=== PATIENT | female | born 1990 | race Caucasian/White ===

== ENCOUNTER 2020-05-10 01:53 | Emergency (ER) | payer OTHER ==
[~2020-05-10] VITALS: Ht 167.6 cm; Wt 101.1 kg
--- NOTE | 2020-05-10 01:57 | PHYS DOC ---
Past History Past Medical History: Arrhythmia Past Medical History Hx. PSVT child Past Surgical History Cardiac ablation-super ventricular pathway General Adult HPI: HPI: "..I got some chest discomfort..it all lorraine started at 11:30 pm....but I was argument with my Teenage adopted daughter...about typical teenage stuff.. in appropriate posting...ect.. but I felt like there was some discomfort in my chest.. my Rt. arm..maybe numbness like.. but I got more worried about it because of my cardiac problems as a child.. I had to get cardiac ablation... Of a conduction pathway because I was having severe episodes of tachycardia, chest pain, dyspnea, nausea and vomiting... This all happened when I was in 4th-6th grade in [facility].... And I am supposed to follow-up every year with a press service reader and get an EKG but I have not done any of that since I become adult... Patient is a 29 year old female dependent who presents with above hx and complaints right arm numbness and chest discomfort at approximately 2330 hr s.. Recently moved to the area from [facility], her is a Army recruiter account manager for at [employer].. Patient reportedly had severe episodes of paroxysmal supraventricular tachycardia as a child. Which eventually resulted in a ablation at the [facility] in [facility].. Patient states since that time she has not had any problems but was told to periodically follow-up with press service reader and a yearly EKG. Patient has not followed with a press service reader and currently not following with her primary care since adulthood. Patient denies any trauma. No specific ill contacts. No recent travel outside the [facility] since moving to [facility]. Review of Systems: Review of Systems: Constitutional: Denies fever or chills Eyes: Denies change in visual acuity HENT: Denies nasal congestion or sore throat Respiratory: Denies cough or shortness of breath Cardiovascular: Complaints of chest discomfort. GI: Denies abdominal pain, nausea, vomiting, bloody stools or diarrhea : Denies dysuria Musculoskeletal: Denies back pain or joint pain Integument: Denies rash Neurologic: Denies headache, focal weakness or sensory changes Endocrine: Denies polyuria or polydipsia Lymphatic: Denies swollen glands Psychiatric: Denies depression or anxiety Family History: Family History: Noncontributory to presentation Current Medications: Current Meds: See nursing for home meds Allergies: Allergies: No known drug allergies Physical Exam: PE: Constitutional: Well developed, well nourished, no acute distress, non-toxic appearance. [] HENT: Normocephalic, atraumatic, bilateral external ears normal, oropharynx moist, no oral exudates, nose normal. [] Eyes: PERRLA, EOMI, conjunctiva normal, no discharge. [] Neck: Normal range of motion, no tenderness, supple, no stridor. No bruits Cardiovascular:Heart rate regular rhythm, no murmur [] Lungs & Thorax: Bilateral breath sounds equal at apex auscultation [] Abdomen: Bowel sounds normal, soft, no tenderness, no masses, no pulsatile masses. [] Skin: Warm, dry, no erythema, no rash. [] Back: No tenderness, no CVA tenderness. [] Extremities: No tenderness, no cyanosis, no clubbing, ROM intact, no edema. Right arm discomfort described as numbness, seems to follow radial nerve on right. No cording in extremities appreciated Neurologic: Alert and oriented X 3, normal motor function, normal sensory function, no focal deficits noted. [] DTRs +2 patella and brachial. Journal Clerk equal. Right-hand dominant. Distal vibratory 128 intact. Air conduction more than bone conduction with no lateralization. Psychologic: Affect anxious, judgement normal, mood normal. [] EKG: EKG: My interpretation of EKG shows a sinus rhythm at 67 bpm. No acute morphology. There is some slight slurring of the ST in leads II and III [] Radiology/Procedures: Radiology/Procedures: [][address] [place] [id number] IMAGING REPORT Signed PATIENT: CANDIDO SHEIKH ACCOUNT: [id number] : 1990 LOCATION: ER AGE: 29 SEX: F EXAM STATUS: REG ER ORD. PHYSICIAN: AUBREE LE MD REASON: cp, hx psvt, abalation PROCEDURE: CHEST PA & LATERAL Study: CR CHEST PA LATERAL Indication: Chest pain. Comparison: None. Findings: Within normal limits cardiomediastinal silhouette and osmel. No pneumothorax, lobar consolidation or pleural effusion. Impression: No acute radiographic abnormality of the chest. Electronically signed by: PK SINGER MD (05/10/2020 3:08 AM) [id number] DICTATED AND SIGNED BY: PK SINGER MD DATE: 05/10/20 0308 CC: AUBREE LE MD; PCP,NO ~ Heart Score: HEART Score for Chest Pain: HEART Score for Chest Pain Response (Comments) Value History Slighlty/Non-Suspicious 0 ECG Normal 0 Age < 45 0 Risk Factors 1 or 2 Risk Factors 1 Troponin < Normal Limit 0 Total 1 Risk Factors: Risk Factors: DM, Current or recent (<one month) smoker, HTN, HLP, family history of CAD, obesity. Risk Scores: Score 0 - 3: 2.5% MACE over next 6 weeks - Discharge Home Score 4 - 6: 20.3% MACE over next 6 weeks - Admit for Clinical Observation Score 7 - 10: 72.7% MACE over next 6 weeks - Early Invasive Strategies Course & Med Decision Making: Course & Med Decision Making Pertinent Labs and Imaging studies reviewed. (See chart for details) Patient follow-up primary care. Recommend patient have cardiology follow-up. Patient return if any concerns. Avoid caffeine products. Impression: 1. Chest discomfort-suspect noncardiac 2. History of paroxysmal supraventricular tachycardia 3. History of supra ventricular pathway ablation age 9 [] Dragon Disclaimer: Dragon Disclaimer: This electronic medical record was generated, in whole or in part, using a voice recognition dictation system. Departure Departure: Referrals: PCP,NO (PCP) Dragon Disclaimer This chart was dictated in whole or in part using Voice Recognition software in a busy, high-work load, and often noisy Emergency Department environment. It may contain unintended and wholly unrecognized errors or omissions. AUBREE LE MD May 10, 2020 01:57
[2020-05-10 02:26] VITALS: BP 122/67
[2020-05-10] MEDS ORDERED: IV RINGERS SOLUTION,LACTATED 1,000 ML IV SCH (03:00)
[2020-05-10] MEDS ORDERED: ASPIRIN CHEWABLE 81 MG TABLET. PO ONE (03:00)
--- NOTE | 2020-05-10 03:11 | RAD ---
Study: CR CHEST PA LATERAL Indication: Chest pain. Comparison: None. Findings: Within normal limits cardiomediastinal silhouette and osmel. No pneumothorax, lobar consolidation or pleural effusion. Impression: No acute radiographic abnormality of the chest. Electronically signed by: PK SINGER MD (05/10/2020 3:08 AM) [id number]
[2020-05-10 03:22] LABS: BARBITURATES NEG (NEG); BENZODIAZEPINES NEG (NEG); CANNABINOIDS NEG (NEG); COCAINE NEG (NEG); METHADONE NEG (NEG); OPIATES NEG (NEG); PHENCYCLIDINE NEG (NEG)
[2020-05-10 03:25] LABS: AMPHETAMINE/METHAMPHETAMINE NEG (NEG)
[2020-05-10 03:27] LABS: CALCIUM 8.9 mg/dL (8.5-10.1); CREATININE 0.9 mg/dL (0.6-1.0); GFR 73.5; POTASSIUM 3.8 mmol/L (3.5-5.1)
[2020-05-10 03:28] LABS: AMORPHOUS SEDIMENT,UR PRESENT /HPF; BACTERIA,URINE 0 /HPF (0-FEW); BILIRUBIN,URINE NEG (NEG); CLARITY,URINE HAZY; COLOR,URINE YELLOW; GLUCOSE,URINE NEG (NEG); NITRITE,URINE NEG (NEG); RBC,URINE 0 /HPF (0-2); SQUAMOUS EPITHELIAL CELL,UR MOD /LPF; WBC,URINE OCC /HPF (0-4)
[2020-05-10 03:29] LABS: HEMOGLOBIN 12.3 g/dL (12.0-15.5); MEAN CORPUSCULAR HEMOGLOBIN 29 pg (25-35); MEAN CORPUSCULAR HGB CONC 32 g/dL (31-37); MEAN CORPUSCULAR VOLUME 89 fL (79-100); PLATELET COUNT 162 x10^3/uL (140-400); RED BLOOD COUNT 4.29 x10^6/uL (3.50-5.40); WHITE BLOOD COUNT 6.5 x10^3/uL (4.0-11.0)
[2020-05-10 03:37] LABS: % BANDS 2 % (0-9); % LYMPHS 39 % (24-48); % MONOS 2 % (0-10); % SEGS 57 % (35-66); PLT ESTIMATE ADEQUATE (ADEQUATE)
[2020-05-10 03:42] LABS: ALBUMIN 3.7 g/dL (3.4-5.0); DIRECT BILIRUBIN 0.1 mg/dL (0.0-0.2); MAGNESIUM 1.9 mg/dL (1.8-2.4); TOTAL BILIRUBIN 0.2 mg/dL (0.2-1.0); TOTAL PROTEIN 6.9 g/dL (6.4-8.2)
--- NOTE | 2020-05-10 05:46 | EKG ---
[facility] ED [facility] [place] [id number] Test Date: 2020-05-10 Test Time: 02:33:07 Pat Name: CANDIDO SHEIKH Department: Room: Gender: F [employer]: : 1990 Requested By: AUBREE LE Order Number: [id number] Reading MD: Measurements Intervals [place] Rate: 67 P: 56 NC: 160 QRS: 85 QRSD: 76 T: 48 QT: 412 QTc: 438 Interpretive Statements SINUS RHYTHM NORMAL ECG RI6.02 No previous ECG available for comparison
== END 2020-05-10 04:20 | disposition home or self-care (01) ==
LOC: ER 01:53
DX: I47.1 Supraventricular tachycardia (principal); R20.0 Anesthesia of skin
CPT/HCPCS: 36415; 71046; 80048; 80076; 80307; 81001; 81025; 82550; 83690; 83735; 83880; 84443; 84484; 85007; 85025; 85379; 85610; 85730; 93005; 96360; 99285; J7120